=== PATIENT | female | born 1975 | race Caucasian/White ===

== ENCOUNTER 2019-11-14 09:22 | Emergency (ER) | payer MEDICAID, OTHER ==
[~2019-11-14] VITALS: Ht 165.1 cm; Wt 78.8 kg
[~2019-11-14 09:22] MED LIST: HYDR-4383 PO; IMATREX; VALA10002 PO
[2019-11-14] MEDS ORDERED: proCHLORperazine 10 MG/2 ml inj IV ONE (09:55)
[2019-11-14] MEDS ORDERED: normal saline 1000ML IV soln IV ONE (09:55)
[2019-11-14 10:26] LABS: CLARITY,URINE CLOUDY (Clear); COLOR,URINE YELLOW (Yellow); GLUCOSE, URINE NEGATIVE (Neg); KETONES,URINE NEGATIVE (Neg); LEUKOCYTE ESTERASE ,URINE TRACE (Neg); NITRITES, URINE POSITIVE (Neg); OCCULT BLOOD,URINE NEGATIVE (Neg); PROTEIN,URINE NEGATIVE (Neg); UROBILINOGEN,URINE 0.2 E.U/dL (0.2-1.0)
[2019-11-14 10:28] LABS: URINE HCG NEGATIVE (NEG)
[2019-11-14 10:32] LABS: UA COLLECTION TYPE CLN CATCH MIDSTREAM
[2019-11-14 10:33] LABS: SQUAMOUS EPITHELIAL CELL,UR MODERATE /LPF (FEW)
[2019-11-14 10:34] LABS: BACTERIA,URINE 4+ /HPF (Neg); RBC,URINE 0-2 /HPF (0-2)
[2019-11-14 10:35] LABS: AMORPHOUS PHOSPHATES 1+
[2019-11-14 11:06] LABS: BASOPHILS # (AUTO) 0.1 X10'3 (0-0.2); BASOPHILS % (AUTO) 1.4 % (0-1); EOSINOPHILS # (AUTO) 0.3 X10'3 (0-0.9); HEMATOCRIT 39.3 % (35.0-45.0); HEMOGLOBIN 13.2 g/dl (12.0-16.0); LYMPHOCYTES # (AUTO) 2.8 X10'3 (1.1-4.8); LYMPHOCYTES % (AUTO) 36.9 % (21-51); MEAN CORPUSCULAR HEMOGLOBIN 29.5 PG (27.0-31.0); MEAN CORPUSCULAR HGB CONC 33.5 g/dL (33.0-36.5); MEAN CORPUSCULAR VOLUME 87.9 FL (78-98); MEAN PLATELET VOLUME 8.6 FL (7.4-10.4); MONOCYTES # (AUTO) 0.5 X10'3 (0-0.9); MONOCYTES % (AUTO) 7.2 % (2-12); NEUTROPHILS # (AUTO) 3.8 X10'3 (1.8-7.7); NEUTROPHILS % (AUTO) 50.5 % (42-75); PLATELET COUNT 318 X10'3 (140-440); RED BLOOD COUNT 4.47 X10'6 (4.20-5.60); RED CELL DISTRIBUTION WIDTH 13.1 % (11.5-14.5); WHITE BLOOD COUNT 7.5 X10'3 (4.5-11.0)
[2019-11-14 11:18] LABS: ALANINE AMINOTRANSFERASE 23 U/L (12-78); ALBUMIN 3.6 G/DL (3.4-5.0); ALKALINE PHOSPHATASE 89 IU/L (46-116); ANION GAP 5 (8-16); ASPARTATE AMINO TRANSFERASE 20 U/L (10-37); BILIRUBIN,TOTAL 0.1 MG/DL (0.1-1.0); BLOOD UREA NITROGEN 12 MG/DL (7-18); BUN/CREATININE RATIO 16.4 (6.6-38.0); CHLORIDE 105 MMOL/L (99-107); CREATININE 0.73 MG/DL (0.40-0.90); GLUCOSE 106 MG/DL (70-104); POTASSIUM 4.2 MMOL/L (3.5-5.1); SODIUM 139 MMOL/L (135-145); TOTAL CARBON DIOXIDE 28.6 MMOL/L (24-32); TOTAL PROTEIN 7.3 G/DL (6.4-8.2); eGFR 87 ML/MIN
[2019-11-14] MEDS ORDERED: SULF1TAB49 PO (12:19)
[2019-11-14] MEDS ORDERED: ONDA4TAB6 PO (12:19)
[2019-11-14 12:34] VITALS: BP 115/60
== END 2019-11-14 12:37 | disposition home or self-care (01) ==
LOC: ER 09:22
DX: N39.0 Urinary tract infection, site not specified (principal); R11.2 Nausea with vomiting, unspecified; F15.10 Other stimulant abuse, uncomplicated; G43.909 Migraine, unspecified, not intractable, without status migrainosus; J45.909 Unspecified asthma, uncomplicated; F41.9 Anxiety disorder, unspecified; F32.9 Major depressive disorder, single episode, unspecified; F17.200 Nicotine dependence, unspecified, uncomplicated; Z98.890 Other specified postprocedural states; Z88.1 Allergy status to other antibiotic agents; Z79.899 Other long term (current) drug therapy
CPT/HCPCS: 36415; 71045; 80053; 81001; 81025; 84145; 85025; 87040; 87077; 87088; 87186; 87502; 87503; 96374; 99284; J0780; J7030

== ENCOUNTER 2024-03-06 05:56 | Emergency (ER) | payer MEDICAID ==
[~2024-03-06] VITALS: Ht 165.1 cm; Wt 81.8 kg
[~2024-03-06 05:56] MED LIST changes: -HYDR-4383 PO; -IMATREX; +NO HOME MEDS; -VALA10002 PO
[2024-03-06 06:01] VITALS: BP 132/82; PULSE 105; RESP 16; TEMP 96.9; O2SAT 96
[2024-03-06] MEDS: ibuprofen tablet 400 MG TABLET PO ONE (07:50)
[2024-03-06] MEDS: acetaminophen 325mg tablet PO ONE (07:51)
[2024-03-06] MEDS ORDERED: CLIN-119 PO (07:53)
== END 2024-03-06 08:22 | disposition home or self-care (01) ==
LOC: ER 05:57
DX: K04.7 Periapical abscess without sinus (principal); G43.909 Migraine, unspecified, not intractable, without status migrainosus; J45.909 Unspecified asthma, uncomplicated; F15.90 Other stimulant use, unspecified, uncomplicated; Z88.1 Allergy status to other antibiotic agents; Z79.2 Long term (current) use of antibiotics
CPT/HCPCS: 99283

== ENCOUNTER 2025-01-01 14:05 | Emergency (ER) | payer MEDICAID ==
[~2025-01-01] VITALS: Ht 162.6 cm; Wt 77.0 kg
[2025-01-01 14:16] VITALS: BP 128/91; PULSE 79; RESP 16; TEMP 98.1; O2SAT 100
== END 2025-01-01 15:06 | disposition home or self-care (01) ==
LOC: ER 14:05
DX: Z00.8 Encounter for other general examination (principal); J45.909 Unspecified asthma, uncomplicated; G43.909 Migraine, unspecified, not intractable, without status migrainosus; F41.9 Anxiety disorder, unspecified; F32.A Depression, unspecified; F15.90 Other stimulant use, unspecified, uncomplicated; Z88.0 Allergy status to penicillin
CPT/HCPCS: 99281

== ENCOUNTER 2025-04-29 04:57 | Emergency (ER) | payer MEDICAID ==
[~2025-04-29] VITALS: Ht 165.1 cm; Wt 63.6 kg
[2025-04-29 05:02] VITALS: TEMP 97.9
--- NOTE | 2025-04-29 05:29 | Physician Documentation ---
History of Present Illness ~ Chief Complaint: Mechanical Fall Stated Complaint: FALL Time Seen by MD: 05:26 OK to notify your PCP?: Yes Primary Medical Doctor: EZRA LEON Source: patient, RN/, RN notes reviewed, old records Mode of Arrival: POV Exam Limitations: no limitations HPI 49 year old female seen in bed 08 presents to emergency department for complaints of a mechanical fall that happened tonight. She states that she had fallen off a curb hitting her right knee and head. She is unable to identify if she loss consciousness or not. She endorses a small headache but no photosensitivity. She denies drinking and states her last meth use was one day ago. She states her last tetanus shot was one year prior. She does not endorse blood thinners. Tetanus within 5 Years?: Yes Medication Reconciliation Allergies: Coded Allergies: amoxicillin (Verified Allergy, Intermediate, HIVES, 05/19/23) Miscellaneous Medications Home Med List (No Home Medications), (Reported) Past Medical History Past Medical History: Migraine, Asthma, Anxiety, Depression Past Surgical History: other Alcohol Use: None Drug Use: none, methamphetamine Lives with: Other Lives In: Home Occupation: disabled Review of Systems All Other Systems at this time: Reviewed and Negative ROS As stated above in the HPI, otherwise all systems are reviewed and negative. Physical Exam Vital Signs: RN Vital Signs have been reviewed: Yes, Temperature: 97.9, Source: Temporal, Heart Rate: 73, Respiratory Rate: 18, BP: 132/77, Pulse Oximetry: 97, Weight: 63.630 Oxygen Flow Rate: 0 Pulse Oximetry Reflects: adequate oxygenation Physical Exam General: The patient is well developed, well nourished, nontoxic appearing and is in no acute distress. Skin: [place], warm and dry with no rashes. HEENT: Blood over her scalp. Head was normocephalic.. Eyes - pupils equal, round, reactive to light and accommodation. Extraocular movements were intact. Conjunctivae were nonicteric. Ears - bilateral tympanic membranes were normal. The mouth and oropharynx were clear with moist mucous membranes. There were no pharyngeal exudates or erythema. Neck: Supple and nontender. There was no jugular venous distention, lymphadenopathy, thyromegaly or masses. Chest: Clear to auscultation bilaterally without wheezes, rales or rhonchi. No accessory muscle use. No dullness to percussion. Heart: Rate regular and rhythmic. S1, S2. No murmurs. Palpation of the chest wall was normal. No rubs or thrills. Abdomen: Soft, nontender and nondistended. Positive bowel sounds. No guarding or rebound. No hepatosplenomegaly or palpable masses. Extremities: Right knee abrasion with no ecchymosis and no redness. No cyanosis, clubbing or edema. The patient moves all extremities. Pulses were equal and symmetric. Neurologic: Cranial nerves II-XII were intact. Sensation was intact to light touch throughout. Motor strength was 5/5 in all four extremities. Deep tendon reflexes were intact in both upper and lower extremities. Psychologic: The patient was oriented to person, place and time. The patient demonstrated appropriate judgement and insight. Progress Results/Orders Reviewed/noted all lab results: Yes Results/Orders Orders - BIB PATEL MD Wound Care Orders (04/29/25 05:37) Ct Head (04/29/25 06:06) Completed Orders - BIB PATEL MD Ct Head (04/29/25 06:06) Vital Signs 04/29/25 04/29/25 05:02 05:50 Temp 97.9 Pulse 73 Resp 18 16 B/P (MAP) 132/77 Pulse Ox 97 O2 Flow Rate 0 Re-Evaluation Re-Evaluation : Re-Evaluation: Improved Progress Patient was seen and examined. Patient is given reassurance. Patient was found to have multiple abrasions and injuries. Cat scan was negative for intracranial bleed she most likely has a concussion with brief loss of consciousness. Patient received reassurance and then was discharged home. Patient was given Zofran at time of discharge, patient tolerate a meal and will return if she has any worsening symptoms. EKG/XRAY/CT/US/VASC/MRI CT : Interpreted By: both With Contrast?: No Impression CT CT HEAD INDICATION: trauma with Loss of consciousness EXAM DATE: 04/29/2025 06:27 AM COMPARISON: None RADIATION DOSE: CTDIvol: 56 mGy, DLP: 1007 mGy*cm PROCEDURE: CT scans of the head were obtained from the vertex to the skull base. Sagittal and coronal reconstructions were provided. All CT scans at this medical facility are performed using dose modulation techn iques as appropriate to a performed exam including the following: Automated exposure control was utilized; adjustment of the MA and/or KV according to patient size; and use of iterative reconstruction technique. FINDINGS: The brainshows normal morphology and shane-white matter differentiation, without intracranial hemorrhage, extra-axial fluid collection, mass effect or acute large vessel infarct. The ventricles are normal in size. The basal cisterns are patent. The skull and visible facial bones are intact. The paranasal sinuses, mastoid air cells and middle ear cavities are well- aerated. Small frontal scalp contusion. IMPRESSION: No acute intracranial abnormality. Medical Decision Making Additional info obtained from: old records Differential Dx:Considerations: Include: Closed head injury, Cardiac injury, Fracture(s), Intraabdominal injury, Pneumothorax, Cerebral contusion, Pulmonary contusion, Spine injury, Tracheal injury, Urological injury, Vascular injury, Abrasion(s), Contusion(s), Foreign body(s), Hematoma(s), Laceration(s), Encephalopathy, Other Departure Disposition: 01 HOME / SELF CARE / HOMELESS Impression: Primary Impression: Fall Qualified Codes: W19.XXXA - Unspecified fall, initial encounter Additional Impressions: Head contusion Qualified Codes: S00.03XA - Contusion of scalp, initial encounter Abrasion of right knee Qualified Codes: S80.211A - Abrasion, right knee, initial encounter Loss of consciousness Condition: Stable Discharge Instructions: Fall Prevention in the Home, Adult, [id number], Contusion Referrals: NO PRIMARY CARE PROVIDER (PCP) Education Educated: Patient Educated regarding: diagnosis, treatment, prognosis, need for follow up Signature Scribe Signature: Scribed for Bib Patel MD by Silvino Navarro . 04/29/25 05:37 Attestation: The note accurately reflects work and decisions made by me.Bib Patel MD 04/29/25 05:26 BIB PATEL MD Apr 29, 2025 05:29 SILVINO CAMPBELL Apr 29, 2025 05:37
--- NOTE | 2025-04-29 07:47 | RADIOLOGY REPORT ---
CT CT HEAD INDICATION: trauma with Loss of consciousness EXAM DATE: 04/29/2025 06:27 AM COMPARISON: None RADIATION DOSE: CTDIvol: 56 mGy, DLP: 1007 mGy*cm PROCEDURE: CT scans of the head were obtained from the vertex to the skull base. Sagittal and coronal reconstructions were provided. All CT scans at this medical facility are performed using dose modulation techniques as appropriate t o a performed exam including the following: Automated exposure control was utilized; adjustment of th e MA and/or KV according to patient size; and use of iterative reconstruction technique. FINDINGS: The brainshows normal morphology and shane-white matter differentiation, without intracra nial hemorrhage, extra-axial fluid collection, mass effect or acute large vessel infarct. The ventric les are normal in size. The basal cisterns are patent. The skull and visible facial bones are intact. The paranasal sinuses, mastoid air cells and middle ear cavities are well-aerated. Small frontal sc alp contusion. IMPRESSION: No acute intracranial abnormality.
[2025-04-29] MEDS: ondansetron 4mg rapidly disintigrating tab PO ONE (08:26)
[2025-04-29 08:42] VITALS: BP 155/86; PULSE 67; RESP 18; O2SAT 98
== END 2025-04-29 08:48 | disposition home or self-care (01) ==
LOC: ER 04:57
DX: S00.03XA Contusion of scalp, initial encounter (principal); S80.211A Abrasion, right knee, initial encounter; J45.909 Unspecified asthma, uncomplicated; F41.9 Anxiety disorder, unspecified; Z88.0 Allergy status to penicillin; W01.0XXA Fall on same level from slipping, tripping and stumbling without subsequent striking against object, initial encounter; Y93.89 Activity, other specified; Y92.89 Other specified places as the place of occurrence of the external cause; Y99.8 Other external cause status
CPT/HCPCS: 70450; 99284; A6449

== ENCOUNTER 2025-06-09 20:27 | Emergency (ER) | payer MEDICAID ==
[~2025-06-09] VITALS: Ht 162.6 cm; Wt 57.9 kg
[2025-06-09 20:53] VITALS: BP 131/70; PULSE 89; RESP 19; O2SAT 96
--- NOTE | 2025-06-09 21:06 | Physician Documentation ---
History of Present Illness ~ Stated Complaint: INFECTION ON FOOT Time Seen by MD: 21:00 Primary Medical Doctor: EZRA LEON [facility] This is a 49-year-old female who presents for evaluation on the infection on the dorsum of her left foot. Has been present there for months, started out as a blister. The blister was deroofed. She continued to clean her foot. She states four days ago it became red and painful. She notes a small amount of yellowish discharge. No particular palliating or aggravating factors. Did not attempt to treat it. Denies any concerns for tobacco, alcohol or illicit substances use Denies any fever or chills. Tetanus witin 5 years: Yes Medication Reconciliation Allergies: Coded Allergies: amoxicillin (Verified Allergy, Intermediate, HIVES, 05/19/23) Miscellaneous Medications Home Med List (No Home Medications), (Reported) Past Medical History Past Medical History: Migraine, Asthma, Anxiety, Depression Past Surgical History: other Alcohol Use: None Drug Use: none, methamphetamine Lives with: Other Lives In: Home Occupation: disabled Review of Systems ROS 10 point review of systems was performed and unless noted above in HPI is negative for acute process/complaint. Physical Exam Physical Exam Physical examination: GENERAL: Awake, alert, oriented, GCS 15, no apparent distress, appears older than stated age, answers questions, follows commands appropriately. HEENT: Atraumatic, normocephalic, pupils equal, extraocular muscles intact Active gross movements, sclerae anicteric, mucus membranes moist, no stridor. NECK: Midline, no JVD CARDIOVASCULAR: Good skin perfusion without evidence of pallor, mottling. PULMONARY: Nonlabored, symmetric chest rise, no audible wheezing, no accessory muscle use, no respiratory distress, speaking in full sentences. GASTROINTESTINAL: Not distended. NEUROLOGIC: Lucid with normal mental status. Normal facial symmetry. Moves all extremities symmetrically and with purpose. No truncal ataxia. Speech is fluid without evidence of dysarthria or aphasia, no focal deficits appreciated. EXTREMITIES: Acute deformities Skin: warm, dry PSYCHIATRIC: Normal affect, normal insight, normal concentration. Focused exam: [There is mild swelling to the dorsum of the left foot. There is area of erythema and calor. There is approximately 1.5 cm area of denuded skin with a some yellowish shane discharge. Cap refill less than 2 seconds.] Progress Results/Orders Results/Orders Orders - ANANT ESCALERA DO Sulfamethox/Trimetho. Ds Tab ( Ds (06/09/25 21:00) Medical Decision Making Findings Facility Status: ED Holds, [facility] process The plan was discussed with the patient, who demonstrates clear understanding of the plan and is in agreement with the plan unless otherwise noted in the chart. All questions have been answered, all concerns were addressed unless otherwise documented. I was available throughout their ED stay for frequent reassessment and questions. Differential Diagnoses (considered and possible or likely): [Foot cellulitis, unlikely to be foot abscess, unlikely to be necrotizing infection, unlikely osteomyelitis] ??Differential Diagnoses (considered and unlikely, not requiring evaluation currently): [See above] MDM Data Please see [facility] for the following: Independent Historians and external Records Review. Historian: [Patient] Independent Historians: ?[Record review] Medication Management: [Reviewed medication list] Social History and determinants: [Reviewed] Please see the body of the note for the following: Any independent interpretations of ECG, imaging studies. All vitals signs/haemodynamics, ordered tests were independently reviewed and i nterpreted by myself. Nursing triage complaint and vitals reviewed, additional nursing notes were reviewed as available and I agree unless otherwise noted or documented in contradiction in the chart Vital Signs: Independently reviewed Labs: Independently interpreted Imaging: Independently interpreted Old Medical Records: Independently reviewed, see [facility] for relevant summary and information Pulse Oximetry: [99%] interpreted as [normal on room air] by me Additionally notably showing: [Hemodynamically stable] Tests considered but not ordered include: [Hematologic workup and imaging has been considered but does not appear to be necessary given clinical nature of diagnosis] Social Determinants of Health Impact: Patient was evaluated in [facility], or [facility] [place] to healthcare due to below par ratio of patient to medical providers. [] Comorbid Conditions Impacting Present Evaluation and Care/Treatment: [None reported with the patient] Management Discussions with other Healthcare Providers: [Non] Treatment and Disposition Medication Management (Given or considered): [Initial dose of antibiotics]. See EMR for details Consideration for Hospitalization/Escalation/Deescalation of Care: Admission for observation has been considered, [however the patient is able to tolerate p.o., their symptoms are controlled, they are able to rely on oral medications, and their chief complaint/diagnosis can be managed on outpatient basis.] ?ED Course:?[No clinical deterioration] ?Shared decision making:?[Patient is hemodynamically stable for discharge home with follow with their primary care provider. [ ] Specific and cautious return precautions provided and discussed with full understanding. Any incidental findings were also discussed and follow up recommendations given. [] All questions answered. Patient/family were able to verbalize back return precauti ons. Patient/family agree to plan. Copies of imaging and laboratory studies were provided.] Code status:?FULL Please see the full Electronic Medical Record for full details of nursing documentation, medications list, other records of complete past medical history and conditions, vital signs, laboratory studies, and any radiologic study interpretations by radiologists. Portions of this note were completed using [employer] dictation software and as a result there may exist minor errors in spelling. I have reviewed elements of past family and social history and agree as included in note. Departure Disposition: 01 HOME / SELF CARE / HOMELESS (ERASED) Impression: Primary Impression: Cellulitis of foot Condition: Improved Discharge Instructions: Cellulitis, Adult Additional Instructions: Return to emergency department if his symptoms do not improve in the next three days, if they get worse , if you develop fever, worsening discharge from the foot. If it returned with a any other concerns, we are always glad to help you Referrals: NO PRIMARY CARE PROVIDER (PCP) Education Educated: Patient Educated regarding: diagnosis, treatment, prognosis, need for follow up Signature Scribe Signature: No scribe Attestation: This note accurately reflects clinical decisions, work performed by myself, DO JW Hernandez NICHOLAS M DO Jun 09, 2025 21:06
[2025-06-09] MEDS: sulfamethoxazole/trimethoprim DS (800/160mg) tablet PO ONE (21:15)
[2025-06-09 21:18] VITALS: TEMP 98.3
[2025-06-09] MEDS ORDERED: SULF1TAB49 PO (21:20)
== END 2025-06-09 21:29 | disposition home or self-care (01) ==
LOC: ER 20:27
DX: L03.116 Cellulitis of left lower limb (principal); J45.909 Unspecified asthma, uncomplicated; G43.909 Migraine, unspecified, not intractable, without status migrainosus; F41.9 Anxiety disorder, unspecified; F32.A Depression, unspecified; F15.90 Other stimulant use, unspecified, uncomplicated; Z88.1 Allergy status to other antibiotic agents
CPT/HCPCS: 82948; 99283

== ENCOUNTER 2025-06-23 22:03 | Emergency (ER) | payer MEDICAID ==
[~2025-06-23] VITALS: Ht 165.1 cm; Wt 50.0 kg
[2025-06-23 22:14] VITALS: TEMP 97
--- NOTE | 2025-06-23 22:57 | RADIOLOGY REPORT ---
CHEST RADIOGRAPH Indication: SEPSIS Technique: Single frontal view of the chest was obtained COMPARISON: None FINDINGS: Mild hazy opacity throughout both lower lungs. No dense focal airspace disease however. No significant public fusions or pneumothorax. Cardiac silhouette is within normal limits. Bones and soft tissues demonstrate no significant abnormality. IMPRESSION: MILD HAZY OPACITY THROUGHOUT BOTH LOWER LUNGS MAKING IT DIFFICULT TO EXCLUDE PNEUMONIA ON EITHER SIDE.
[2025-06-23 23:18] LABS: MEAN PLATELET VOLUME 7.7 FL (7.4-10.4); RED CELL DISTRIBUTION WIDTH 13.1 % (11.5-14.5)
[2025-06-23 23:28] LABS: CREATININE 0.92 MG/DL (0.40-0.90); TOTAL CARBON DIOXIDE 27.7 MMOL/L (24-32); eCRCL 58 ML/MIN; eGFR 65 ML/MIN
--- NOTE | 2025-06-23 23:54 | Physician Documentation ---
History of Present Illness General Chief Complaint: Wound Re-Check Stated Complaint: FOOT INFECTION Time Seen by MD: 23:54 Primary Medical Doctor: EZRA LEON History of Present Illness Initial Comments The patient is a 49-year-old female states she has had a foot infection for last three weeks. Patient states she had poison oak on her foot and she had blisters that became infected. She states she took Bactrim and she did not see much improvement. Patient complains of dry itchy skin to that left foot she denies any fevers chills nausea or vomiting no purulent discharge. Symptoms are mild to moderate persistent. Medication Reconciliation Allergies: Coded Allergies: amoxicillin (Verified Allergy, Intermediate, HIVES, 05/19/23) Scheduled Cephalexin*Monohydrate* (Keflex*), 2 CAP PO BID Mupirocin* (Bactroban*), 1 APPLIC TOP BID Sulfamethoxazole/Trimethoprim (Bactrim Ds Tablet), 1 TAB PO Q12H Miscellaneous Medications Home Med List (No Home Medications), (Reported) Discontinued Medications Sulfamethoxazole/Trimethoprim (Bactrim Ds Tablet), 1 TAB PO Q12H Discontinued Reason: Auto Discontinued Past Medical History Past Medical History: Migraine, Asthma, Anxiety, Depression Past Surgical History: other Smoking: Cigarettes Alcohol Use: None Drug Use: none, methamphetamine Lives with: Other Lives In: Home Occupation: disabled Review of Systems All Other Systems at this time: Reviewed and Negative Physical Exam Physical Exam Vital Signs: Temperature: 97.0, Heart Rate: 97, Respiratory Rate: 18, BP: 138/45, Pulse Oximetry: 96, Weight: 50.000 Physical Exam VITALS: Reviewed and as above. GENERAL: Alert, no apparent distress. HEENT: Normocephalic, atraumatic, PERRL, EOMI, dry mucosa, no erythema BACK: No CVA tenderness, or swelling MUSCULOSKELETAL: No deformities, no edema SKIN: Warm and dry, excoriated skin with desquamated blisters to the dorsal foot, there is erythema and slight swelling to the dorsal aspect of the foot. No fluctuance. The skin is dry and excoriated all throughout the dorsum of the foot. NEURO: Oriented x4, No motor or sensory deficit PSYCH: Normal mood and affect, no agitation Progress Results/Orders Results/Orders Orders - INLKESHA,RONNELL Carpenter MD Culture Blood (06/23/25 22:17) Chest,Single View (06/23/25 22:17) Hcg, Ur Ql (06/23/25 22:17) Completed Orders - OHLRONNELL REBOLLEDO MD Cbc/Diff (06/23/25 22:17) MG (06/23/25 22:17) Chest,Single View (06/23/25 22:17) Procalcitonin (06/23/25 22:17) BMP (06/23/25 22:17) Lacticsepsis (06/23/25 22:17) Sulfamethox/Trimetho. Ds Tab (Septra Ds (06/24/25 00:35) Cephalexin Capsule (Keflex Capsule) (06/24/25 00:35) Mupirocin Ointment (Bactroban Ointment) (06/24/25 00:35) Medications Received in ER Medications (Trade) Dose Ordered Sig/Dora Route PRN Reason Start Time Stop Time Status Last Admin Dose Admin (Septra DS tab) 1 tab ONCE ONCE PO 06/24/25 00:35 06/24/25 00:38 DC 06/24/25 00:54 1 TAB (Keflex capsule) 500 mg ONCE ONCE PO 06/24/25 00:35 06/24/25 00:38 DC 06/24/25 00:54 500 MG (Bactroban ointment) 1 applic ONCE STAT TP 06/24/25 00:35 06/24/25 00:38 DC 06/24/25 00:54 1 APPLIC Vital Signs 06/23/25 06/24/25 06/24/25 22:14 00:26 00:35 Temp 97.0 Pulse 97 80 Resp 18 18 16 B/P (MAP) 138/45 118/70 (86) Pulse Ox 96 98 Laboratory Tests Test 06/23/25 22:54 06/23/25 22:57 White Blood Count 10.6 Red Blood Count 3.78 L Hemoglobin 11.2 L Hematocrit 33.1 L Mean Corpuscular Volume 87.4 Mean Corpuscular Hemoglobin 29.7 Mean Corpuscular Hemoglobin Concent 34.0 Red Cell Distribution Width 13.1 Platelet Count 401 Mean Platelet Volume 7.7 Neutrophils (%) (Auto) 57.1 Lymphocytes (%) (Auto) 28.6 Monocytes (%) (Auto) 8.9 Eosinophils (%) (Auto) 4.4 Basophils (%) (Auto) 1.0 Neutrophils # (Auto) 6.0 Lymphocytes # (Auto) 3.0 Monocytes # (Auto) 0.9 Eosinophils # (Auto) 0.5 Basophils # (Auto) 0.1 CBC Comment Lactic Acid Level 0.6 Sodium Level 147 H Potassium Level 3.9 Chloride Level 109 H Carbon Dioxide Level 27.7 Anion Gap 10 Blood Urea Nitrogen 14 Creatinine 0.92 H Estimated GFR/1.73 m2 65 BUN/Creatinine Ratio 15.2 Glucose Level 82 Calcium Level 9.1 Magnesium Level 2.1 Albumin 3.5 Procalcitonin < 0.05 Chemistry Comments Microbiology Date/Time Source Procedure Growth Status 06/23/25 22:57 Blood Arm Right Blood Culture - Preliminary NEGATIVE (LESS THAN 24 HOURS) Resulted EKG/XRAY/CT/US/VASC/MRI Chest X-Ray : Additional Comments Patient: AKHIL ELLINGTON Medical Record: [id number] [facility] : 1975, Age: 49 Sex: Female Location: ER Patient Status: [facility] ER Service Date/Time: 06/23/252216 Ordering Physician: RONNELL RODRIGUEZ MD Exam: CHEST,SINGLE VIEW CHEST RADIOGRAPH Indication: SEPSIS Technique: Single frontal view of the chest was obtained COMPARISON: None FINDINGS: Mild hazy opacity throughout both lower lungs. No dense focal airspace disease however. No significant public fusions or pneumothorax. Cardiac silhouette is within normal limits. Bones and soft tissues demonstrate no significant abnormality. IMPRESSION: MILD HAZY OPACITY THROUGHOUT BOTH LOWER LUNGS MAKING IT DIFFICULT TO EXCLUDE PNEUMONIA ON EITHER SIDE. Electronically Signed by:BRAULIO MARIO MD Date & Time: 06/23/252254 Dictated by: BRAULIO MARIO MD Dictation date and time: 06/23/252254 Primary Care Provider: NO PRIMARY CARE PROVIDER cc: RONNELL RODRIGUEZ MD ~ Medical Decision Making Findings Patient is a 49-year-old female with an excoriated and cellulitic left foot. The the patient is otherwise nontoxic her labs were reviewed. Previous hospitalizations have been reviewed. Her her pulse oximetry was interpreted as adequate and normal the patient will be given Keflex and Septra she still has been advised to use Bactroban ointment twice daily. The patient will be discharged. Departure Disposition: HOME / SELF CARE / HOMELESS Impression: Primary Impression: Cellulitis Referrals: NO PRIMARY CARE PROVIDER (PCP) Prescriptions Mupirocin* (Bactroban*) 22 Gm Tube 1 APPLIC TOP BID for 7 Days, #22 GM apply to affected area(s) Prov: RONNELL RODRIGUEZ MD 06/24/25 Sulfamethoxazole/Trimethoprim (Bactrim Ds Tablet) 800 Mg-160 Mg Tablet 1 TAB PO Q12H for 10 Days, #20 TAB Prov: RONNELL RODRIGUEZ MD 06/24/25 Cephalexin*Monohydrate* (Keflex*) 500 Mg Capsule 2 CAP PO BID, #40 CAP Prov: RONNELL RODRIGUEZ MD 06/24/25 Signature Scribe Signature: no scribe Attestation: The note accurately reflects work and decisions made by me.Ronnell Rodriguez MD 06/24/25 05:47 RONNELL RODRIGUEZ MD Jun 23, 2025 23:54
[2025-06-24 00:35] VITALS: BP 118/70; PULSE 80; RESP 16; O2SAT 98
[2025-06-24] MEDS ORDERED: CEPH-585 PO (00:42)
[2025-06-24] MEDS ORDERED: SULF1TAB49 PO (00:42)
[2025-06-24] MEDS ORDERED: MUPI22OI30 TOP (00:42)
[2025-06-24] MEDS: sulfamethoxazole/trimethoprim DS (800/160mg) tablet PO ONE (00:54)
== END 2025-06-24 01:57 | disposition home or self-care (01) ==
LOC: ER 22:03
DX: L03.116 Cellulitis of left lower limb (principal); J45.909 Unspecified asthma, uncomplicated; G43.909 Migraine, unspecified, not intractable, without status migrainosus; F41.9 Anxiety disorder, unspecified; F32.A Depression, unspecified; F15.90 Other stimulant use, unspecified, uncomplicated; Z88.0 Allergy status to penicillin; Z79.899 Other long term (current) drug therapy
CPT/HCPCS: 36415; 71045; 80048; 83605; 83735; 84145; 85025; 87040; 99284; J7030; A6446; A6449